=== PATIENT | female | born 1995 | race Asian ===

== ENCOUNTER 2017-03-02 12:23 | Emergency (ER) | payer BC, OTHER ==
[~2017-03-02] VITALS: Ht 177.8 cm; Wt 63.5 kg
[2017-03-02] MEDS ORDERED: ONDANSETRON HCL 4 MG/2 ML VIAL IV ONE (12:45)
[2017-03-02] MEDS ORDERED: HYDROmorphone HCL 2 MG/ML VL IV ONE (12:45)
[2017-03-02] MEDS ORDERED: PROMETHAZINE HCL 25 MG/ML 1ML IV ONE (13:45)
[2017-03-02] MEDS ORDERED: LIDOCAINE 1% HCL (LOCAL ANESTH.) INJ 20ML MDV ONE (14:01)
[2017-03-02 14:12] VITALS: BP 147/80
[2017-03-02] MEDS ORDERED: TETANUS-DIPTH-ACEL PERTUSSIS 0.5ML SYRG IM ONE (14:45)
== END 2017-03-02 15:14 | disposition home or self-care (01) ==
LOC: ER 12:23 → EDBD 12:23 → ER 15:14
DX: S42.002A Fracture of unspecified part of left clavicle, initial encounter for closed fracture (principal); S61.213A Laceration without foreign body of left middle finger without damage to nail, initial encounter; M25.552 Pain in left hip; R07.9 Chest pain, unspecified; V43.52XA Car driver injured in collision with other type car in traffic accident, initial encounter; Y93.89 Activity, other specified; Y92.89 Other specified places as the place of occurrence of the external cause; Y99.8 Other external cause status
CPT/HCPCS: 12002; 71010; 73030; 73130; 73502; 90471; 90715; 96374; 96375; 99284; J1170; J2001; J2405; J2550; 29130